=== PATIENT | female | born 1950 | race Caucasian/White ===

== ENCOUNTER 2020-07-18 13:09 | Outpatient (CLI) | payer OTHER, SELFPAY ==
--- NOTE | 2020-07-18 13:00 | RT.EKG_ITS ---
APPROVED REPORT Exam: Resting ECG Patient Location: O HR:63 bpm ECG Measurements Heart Rate 63 AXIS OH 175 P 25 QRSd 86 QRS 50 QT 420 T 67 QTc 430 Conclusion Sinus rhythm...normal P axis, V-rate 50- 99 Normal Electrocardiogram
== END 2020-07-18 13:10 | disposition home or self-care (01) ==
LOC: DI.CARD 13:10
PROVIDERS: PCP Family Medicine; Visit Provider Internal Medicine Cardiovascular Disease
DX: I10 Essential (primary) hypertension (principal)
CPT/HCPCS: 93010

== ENCOUNTER 2020-07-25 01:22 | Outpatient (CLI) | payer OTHER, SELFPAY ==
--- NOTE | 2020-07-25 07:00 | DI.NM_ITS ---
APPROVED REPORT Exam: Pharmacologic paired with low level exercise Patient Location: Out-Patient Room/Bed: Stress Nurse: Vianey Cardona RN Ordering Provider:COLBY DE LA TORRE, Contact Number: [phone] BMI: 34.19 Baseline Rhythm: Sinus Bradycardia Indications: HAGEN, Hypertension Medical History Medical History: Hypertension, HAGEN, COPD, obesity, asthma, osteoarthritis L knee Cardiac Medications: pantoprazole, metoprolol succinate, lisinopril-HCTZ, umeclidinium inhaler, fluti casone-salmeterol inhaler, albuterol sulfate inhaler Allergies: NKA Cardiac Risk Factors: Hypertension, asthma, obesity, COPD Previous Cardiac Procedures: None Pretest Chest Pain Characteristics: mild SOB Exercise History: Sedentary Physical Disabilities: None Lung Sounds: Clear to auscultation Heart Sounds: Regular Stress Test Details Test: Pharmacologic stress was paired with low level exercise. Reason for pharmacologic stress test: physical limitation. Nuclear Acquisition: Rest Tc-99m/Stress Tc-99m 1 day Rest Isotope: Tc-99m Sestamibi. Dose: 12.4 Date: 07/25/2020 Injection Time: 0930 Stress Isotope: Tc-99m Sestamibi. Dose: 37.5 Date: 07/25/2020 Injection Time: 1150 HR Resting HR Supine: 58 bpm Max Heart Rate (APMHR): 148 bpm Resting HR Standin bpm Target HR (85% APMHR): 125 bpm Max HR Achieved: 107 bpm % of APMHR: 72 Recovery HR: 77 bpm BP Resting BP Supine: 146/78 mmHg Resting BP Standin/74 mmHg Max BP: 160/76 mmHg Recovery BP: 144/72 mmHg ECG Resting ECG: Sinus Bradycardia Ectopy: None Stress ECG: Sinus Tachycardia ST Change: No significant ST segment changes noted Arrhythmia: PAC Recovery ECG: Sinus Rhythm Recovery ST Change: No significant ST segment changes noted Recovery Arrhythmia: PAC Clinical Stress Symptoms: Dyspnea Exercise duration: 6 min04 sec Exercise capacity: 1.38 METs Rate Pressure Product: [id number] Stress ECG Conclusion 1. This is a pharmacological stress test. 2. Patient no symptoms suggestive of ischemia. 3. The ECG portion of this exam was nondiagnostic. MPI Conclusion The patient's ejection fraction was 71% with stress. There were no wall motion abnormalities. There is a moderate sized reversible perfusion defect of the anterolateral wall as well as the apex. Of note, there is a significant amount of bowel uptake particularly during the stress imaging. This greatly affects the sensitivity of interpretation of the study. This likely represents an abnormal SPECT stress test.
[2020-07-25] MEDS: Regadenoson 0.4 MG/5 ML SYR IVP (11:57)
== END 2020-07-25 01:42 ==
PROVIDERS: PCP Family Medicine; Visit Provider Internal Medicine Cardiovascular Disease
DX: R06.09 Other forms of dyspnea (principal); Z01.810 Encounter for preprocedural cardiovascular examination; I10 Essential (primary) hypertension; J45.909 Unspecified asthma, uncomplicated; E66.9 Obesity, unspecified; Z68.34 Body mass index [BMI] 34.0-34.9, adult; J44.9 Chronic obstructive pulmonary disease, unspecified; R94.39 Abnormal result of other cardiovascular function study
CPT/HCPCS: 78452; 93017; J2785

== ENCOUNTER 2022-09-07 11:15 | Outpatient (REF) | payer MEDICARE, SELFPAY ==
--- NOTE | 2022-09-07 11:00 | SKI_PTH ---
PATIENT: Isabella Goodman LOC: [facility] U#:[id number] AGE/SX: 72/F ROOM: RE09/07/[address]: SOFIA Lopez : 1950 BED: DIS: 09/07/2022 SPEC #: [id number] RECD: 09/07/22 13:53 STATUS: BLAINE REQ #: [id number] STACEY: 09/07/22 11:[address]: Dominic Dash DEPT: Surgical Specimen RECD BY: Ivet Faria ENTERED: 09/07/22 13:54 SP TYPE: JEANNIE MORGAN DR: Shahram Kan Tissues: 1 - SKIN BIOPSY(SHAVE/PUNCH) Procedures: SKIN LEVEL 4 Comments: [id number]
== END 2022-09-07 11:16 | disposition home or self-care (01) ==
LOC: LBN 11:15
PROVIDERS: PCP Family Medicine; Visit Provider Physician Assistant
DX: L30.8 Other specified dermatitis (principal); L28.0 Lichen simplex chronicus; L28.1 Prurigo nodularis
CPT/HCPCS: 88305